=== PATIENT | female | born 1960 | race Hispanic/Latino ===

== ENCOUNTER 2017-07-13 09:53 | Outpatient (CLI) | payer MEDICARE, BC ==
--- NOTE | 2017-07-13 10:35 | MMO ---
BILATERAL MAMMOGRAMS: DATE: 07/13/17 HISTORY: Screening mammography. COMPARISON: 12/13/13. FINDINGS: Heterogeneously dense fibroglandular tissue benign-appearing calcifications are again demonstrated. M ultiple partially obscured oval and lobular isodense nodules of varying size throughout each breast a re stable and consistent with a benign process. There is no new dominant mass or suspicious calcifica tions. The study was evaluated with the assistance of computer-aided detection. IMPRESSION: BIRADS 2: Benign Finding(s) Suggest routine follow-up. POS: [facility]
== END 2017-07-13 09:54 | disposition home or self-care (01) ==
LOC: SCSMAMMO 09:53
PROVIDERS: ATTEND Family Medicine
DX: Z12.31 Encounter for screening mammogram for malignant neoplasm of breast (principal)
CPT/HCPCS: 77067

== ENCOUNTER 2017-12-10 19:04 | Observation (INO) | payer MEDICARE, BC ==
[2017-12-10] MEDS ORDERED: Nitroglycerin 2% Ointment 1 INCH/1 GM Packet ONE (19:32)
[2017-12-10 19:36] LABS: #Eosinphils 0.1 thou/uL (0.0-0.7); #Lymphocytes 2.1 thou/uL (1.20-3.40); #Monocytes 0.6 thou/uL (0.11-0.59); #Neutrophils 4.6 thou/uL (1.40-6.50); %Basophils 0.6 % (0.0-1.0); %Eosinophils 1.2 % (0.0-10.0); %Lymphocytes 27.9 % (21.0-51.0); %Monocytes 8.4 % (0.0-10.0); %Neutrophils 61.8 % (42.0-75.0); Hemoglobin 13.7 g/dL (12.0-16.0); Mean Corpuscular HGB CONC 35.1 g/dL (32.0-36.0); Mean Corpuscular Hemoglobin 28.3 pg (27.0-31.0); Mean Corpuscular Volume 80.7 fL (78.0-98.0); Mean Platelet Volume 6.9 fL (7.4-10.4); Platelet Count 233 thou/uL (130-400); RBC Distribution Width 11.6 % (11.5-14.5); Red Blood Cell (RBC) Count 4.84 mill/uL (4.20-5.40); White Blood Cell (WBC) Count 7.4 thou/uL (4.8-10.8)
[2017-12-10 19:49] LABS: ALT (SGPT) 15 U/L (8-55); AST (SGOT) 15 U/L (5-34); Albumin 4.6 g/dL (3.5-5.0); Alkaline Phosphatase 124 U/L (40-150); Anion Gap 15 mmol/L (10-20); BUN (Urea Nitrogen) 18 mg/dL (9.8-20.1); Bilirubin, Total 0.6 mg/dL (0.2-1.2); CK (CPK) 66 U/L (29-168); CKMB 1.2 ng/mL (0-6.6); Calc. Creatinine Clearance 0 mL/min (70-130); Calcium 9.6 mg/dL (7.8-10.44); Carbon Dioxide 24 mmol/L (22-29); Chloride 106 mmol/L (98-107); Estimated GFR-MDRD 85; Globulin 2.6 g/dL (2.4-3.5); Glucose 130 mg/dL (70-105); Lipase 24 U/L (8-78); Potassium 3.3 mmol/L (3.5-5.1); Protein, Total 7.2 g/dL (6.0-8.3); Sodium 142 mmol/L (136-145); Troponin I Less than 0.010 ng/mL (< 0.028)
--- NOTE | 2017-12-10 20:06 | RAD ---
PORTABLE UPRIGHT FRONTAL CHEST RADIOGRAPH 12/10/17 COMPARISON: 12/16/09 HISTORY: Chest pain. FINDINGS: Midline sternotomy wires are present. There is no pneumothorax, pleural fluid, focal consolidation, o r alveolar edema. There is mild pulmonary vascular prominence. IMPRESSION: No acute findings. POS: [facility]
[2017-12-10] MEDS ORDERED: Famotidine/PF 20 mg/2ml Vial ONE (20:20)
[2017-12-10] MEDS ORDERED: Acetaminophen 325 MG TAB PO PRN (21:31)
[2017-12-10] MEDS ORDERED: Calcium Carbonate 500 MG ChewTAB PO PRN (22:29)
[2017-12-10] MEDS ORDERED: traMADol HCl 50 MG TAB PO PRN (22:29)
[2017-12-10] MEDS ORDERED: Bisacodyl 5 MG TAB PO PRN ×2 (22:29)
[2017-12-10] MEDS ORDERED: Diabetic Tussin 200 MG/10 ML UDCUP PO PRN (22:29)
[2017-12-10] MEDS ORDERED: Mag-Al 1200 mg/1200 mg/30 ML UDCUP PO PRN (22:29)
[2017-12-10] MEDS ORDERED: Nitroglycerin 0.4 MG TAB (25 Tab Bottle) SL PRN (22:29)
[2017-12-10] MEDS ORDERED: Benzonatate 100 MG CAP PO PRN (22:29)
[2017-12-10] MEDS ORDERED: Senokot 8.6 MG TAB PO PRN ×2 (22:29)
[2017-12-10] MEDS ORDERED: Ondansetron HCl/PF 4 MG/2 ML Vial IVP PRN (22:29)
[2017-12-10] MEDS ORDERED: hydrALAZINE 20 MG/ML VIAL SLOW IVP PRN (22:29)
[2017-12-10] MEDS ORDERED: Loratadine 10 MG TAB PO PRN (22:29)
[2017-12-10] MEDS ORDERED: cloNIDine 0.1 MG TAB PO PRN (22:29)
[2017-12-10 23:08] LABS: Troponin I Less than 0.010 ng/mL (< 0.028)
[2017-12-10 23:43] VITALS: BMI 28.5
[2017-12-10] MEDS ORDERED: Nitroglycerin 2% Ointment 1 INCH/1 GM Packet TOP SCH (23:59)
[2017-12-11] MEDS: Acetaminophen 325 MG TAB PO PRN ×2 (00:17→05:13)
[2017-12-11 02:01] LABS: #Eosinphils 0.1 thou/uL (0.0-0.7); #Monocytes 0.6 thou/uL (0.11-0.59); #Neutrophils 3.2 thou/uL (1.40-6.50); %Basophils 0.1 % (0.0-1.0); %Eosinophils 1.6 % (0.0-10.0); %Lymphocytes 34.1 % (21.0-51.0); %Monocytes 9.3 % (0.0-10.0); Hemoglobin 12.6 g/dL (12.0-16.0); Mean Corpuscular Hemoglobin 30.1 pg (27.0-31.0); Mean Corpuscular Volume 86.1 fL (78.0-98.0); Mean Platelet Volume 6.6 fL (7.4-10.4); Platelet Count 207 thou/uL (130-400); RBC Distribution Width 12.1 % (11.5-14.5); Red Blood Cell (RBC) Count 4.19 mill/uL (4.20-5.40); White Blood Cell (WBC) Count 5.9 thou/uL (4.8-10.8)
[2017-12-11 02:05] LABS: Troponin I Less than 0.010 ng/mL (< 0.028)
[2017-12-11 02:20] LABS: Anion Gap 12 mmol/L (10-20); BUN (Urea Nitrogen) 18 mg/dL (9.8-20.1); Calc. Creatinine Clearance 117 mL/min (70-130); Calcium 9.2 mg/dL (7.8-10.44); Carbon Dioxide 24 mmol/L (22-29); Cardiac Risk 3.9 (Less than 4.5); Chloride 107 mmol/L (98-107); Cholesterol 196 mg/dl (< 200 Desired); Estimated GFR-MDRD Greater than 90; Glucose 112 mg/dL (70-105); HDL Cholesterol 50 mg/dL (>60 Neg Risk); LDL Cholesterol, Calculated 122 mg/dL; Potassium 3.4 mmol/L (3.5-5.1); Sodium 140 mmol/L (136-145); Triglycerides 121 mg/dL (Less than 150)
--- NOTE | 2017-12-11 02:26 | HP ---
DATE OF ADMISSION: 12/10/2017 Patient was seen prior to midnight. PRIMARY CARE PHYSICIAN: Dr. Benjamin Rose. CHIEF COMPLAINT: Chest pain. HISTORY OF PRESENTING ILLNESS: Ms. Pagan is a very pleasant 57-year-old female with past medical his tory of coronary artery disease, status post CABG in 2005, who is here for chest pain symptoms. Hist ory is mainly obtained by the patient herself and electronical medical records have been reviewed. Ms. Pagan reports that she had a stress test done in 2005, which was found to be abnormal, so she und erwent balloon angioplasty, but was told that she would require coronary artery bypass graft. She re ports that she underwent the CABG, which was sustained a cardiac arrest and they had to open her up t wice again. She has been following up with Dr. Ludwig in the Cardiology Clinic over at [place] [facility] since then. With the record review, it seems like that she has undergone CABG in 2003 with a redo in 2005. The patient reports that yesterday, she had a severe pain located in the epigastric region associated with some shortness of breath, sweating, and some dizziness and nausea. The symptoms happened while she was cleaning. These went away spontaneously after few hours then she felt better. Again, this morning, she had similar symptoms, but they were not more pronounced. She reports that the pain is m ainly in the upper epigastric area and it feels like a severe cramp. Today, she was not nauseated or did not have any sweating or any palpitations. She got worried with these symptoms and her family b rought her to the hospital. She does report that she is supposed to take an aspirin a day, but somet imes she forgets. The patient reports that she has been feeling weak and tired lately for the last 2 days. She denies any fever, chills, or recent illnesses. She denies any abdominal pain, nausea, vomiting, diarrhea. She denies any dysuria, frequency, urgency. She denies any shortness of breath or dyspnea on exertio n. In the emergency room, her initial evaluation was unremarkable. She was somewhat hypertensive upon p resentation with blood pressure 172/86. Her 12-lead EKG was unremarkable and cardiac enzymes were no rmal. She did have some nonspecific ST and T abnormality and poor R-wave progression. Chest x-ray w as unremarkable. She was given Pepcid, transdermal nitroglycerin paste, and aspirin and now is being admitted to our facility for further workup. PAST MEDICAL HISTORY: 1. Coronary artery disease, status post CABG x2 in 2003 and then 2005. 2. Hypertension. 3. Iron-defiiency anemia. 4. Dyslipidemia. 5. History of syncope. PAST SURGICAL HISTORY: 1. CABG in 2003 and 2005. 2. Bilateral tubal ligation. ALLERGIES: None. FAMILY HISTORY: Father at the age of 67 from coronary artery disease and brother had coronary a rtery disease. Sister had a murmur. One of her cousins just last week who was in his 30s of he art attack. SOCIAL HISTORY: She is and lives with her family. No history of drug, tobacco, or alcohol a buse. MEDICATIONS: Aspirin 325 mg daily, Plavix 75 mg daily, metoprolol tartrate 25 mg p.o. b.i.d., Lipito r, unknown dose. REVIEW OF SYSTEMS: The following complete review of systems was negative, except for those mentioned in the history and physical: Constitutional: Weight loss or gain, ability to conduct usual activit ies. Skin: Rash, itching. Eyes: Double vision, pain. ENT/Mouth: Nose bleeding, neck stiffness, pain, tenderness. Cardiovascular: Palpitations, dyspnea on exertion, orthopnea. Respiratory: Shor tness of breath, wheezing, cough, hemoptysis, fever, or night sweats. Gastrointestinal: Poor appeti te, abdominal pain, heartburn, nausea, vomiting, constipation, or diarrhea. Genitourinary: Urgency, frequency, dysuria, nocturia. Musculoskeletal: Pain, swelling. Neurologic/Psychiatric: Anxiety, depression. Allergy/Immunologic: Skin rash, bleeding tendency. LABORATORY EXAMINATION: CBC is unremarkable. Serum chemistry show potassium of 3.3, blood sugar 130 . Troponin less than 0.010 x2. BNP normal. Lipase normal. Liver enzymes normal. Chest x-ray by m y review has no evidence to suggest pleural effusion, edema, or infiltrate. A 12-lead EKG by my review shows some nonspecific ST and T-wave changes and normal sinus rhythm. Poo r R-wave progression is seen. PHYSICAL EXAMINATION: VITAL SIGNS: Most recent vital signs, temperature 98.2, pulse of 60, respirations 18, saturating 98% on room air, blood pressure 158/77. GENERAL: No acute distress, lying comfortably in bed. Daughter is at bedside. Awake, alert, orient ed x3. HEENT: Mucous membrane is moist and pink. No oropharyngeal exudate or erythema. Head is normocepha lic, atraumatic. Pupils are equal, reactive to light and accommodation. Extraocular movement intact . NECK: Supple without any lymphadenopathy, JVD, or bruit. CHEST: Clear to auscultation without any wheezing, rales, or rhonchi. HEART: Rate and rhythm is regular without any murmur, rubs, or gallops. ABDOMEN: Tender to palpation in the epigastric region. No rebound, guarding, or rigidity. Nondiste nded. No hepatosplenomegaly. EXTREMITIES: Free of any cyanosis, clubbing, or edema. NEUROLOGIC: Nonfocal. SKIN: Free of any rashes or bruises. I feel warm and dry to touch. PSYCHIATRIC: Normal affect. IMPRESSION AND PLAN: 1. Chest pain. The patient's EMR was reviewed extensively from her last hospitalization and it seem s like that she has had multiple admissions in the last years for angina. She does have some history of noncompliance in the past. Given her extensive history of coronary artery disease and significan t family history, we will go ahead and get a stress test at this time. If the stress test is abnorma l, we will request consultation with Cardiology; otherwise, if it is normal, she will be referred [facility] to her own education courses sales representative, Dr. Ludwig over at [facility]. At this time, we will continue her as pirin, Plavix, and beta-candice. The patient also has epigastric tenderness and her symptoms are mostly located in the epigastrium. T his can be secondary to gastritis, esophagitis, or gastric ulcer. She denies any hematochezia or maynor cynthia at this time. She does take aspirin on a regular basis, so at this time, she will be started on proton pump inhibitor and given Maalox as needed basis. I have instructed her to continue the Proton ix for the next month or so and if her symptoms do not resolve follow up with waste water treatment plant operator: for an EGD. At this time, she is hemodynamically stable. We will also obtain lipid profile and continu e serial cardiac enzymes. We will also repeat an EKG in the morning. 2. History of coronary artery disease. Continue home medications as above. We will also start her on low-dose AMBERLY inhibitor, as there is no contraindication and I am not sure why she is not already o n it, as she is quite hypertensive at this time with significant history of coronary artery disease. 3. Hypertension. The patient will be restarted on her beta-candice except that she contact it until unless she has had her stress test completed. We will start her on lisinopril as well. We will add p.r.n. antihypertensives for now. 4. Epigastric tenderness. We will start her on proton-pump inhibitor for possible non-steroidal ant iinflammatory drug induced gastritis. 5. Deep venous thrombosis and gastrointestinal prophylaxis. 6. Code status: FULL CODE discussed with the patient.
[2017-12-11] MEDS ORDERED: Potassium Chloride 20 MEQ TAB PO SCH (08:00)
[2017-12-11] MEDS ORDERED: Aspirin 325 mg Enteric Coated Tablet PO SCH (09:00)
[2017-12-11] MEDS ORDERED: Famotidine 20 MG TAB PO SCH (09:00)
[2017-12-11] MEDS: Aspirin 325 MG TAB PO SCH ×2 (09:17→12:55)
[2017-12-11] MEDS ORDERED: ADENOSINE 60 MG/20 ML VIAL ONE (10:09)
[2017-12-11] MEDS: Metoprolol Tartrate 25 MG TAB PO SCH ×2 (12:17→20:52)
[2017-12-11] MEDS: Clopidogrel Bisulfate 75 MG TAB PO SCH (12:18)
[2017-12-11] MEDS: Lisinopril 5 MG TAB PO SCH ×2 (12:21→20:52)
[2017-12-11] MEDS: Enoxaparin Sodium 40 MG/0.4 ML SYRINGE SC SCH (12:24)
--- NOTE | 2017-12-11 14:07 | NM ---
CARDIAC SPECT: HISTORY: A 57-year-old female with chest pain, myocardial infarction, hypertension, syncope, coronary artery d isease, CABG. TECHNIQUE: A myocardial perfusion scan is performed using the single-isotope 1-day protocol with Technetium 99m sestamibi. Ten mCi were injected intravenously for the rest exam followed by 31 mCi for the stress s tudy. Pharmacologic stress with adenosine is monitored and interpreted by Dr. Pretty. FINDINGS: Homogeneous tracer distribution is seen in the myocardial segments on stress and rest images without fixed or reversible defects. The GATED SPECT LVEF: 79%. WALL MOTION EXAM: Normal. IMPRESSION: Normal myocardial perfusion scan. POS: [facility]
[2017-12-11] MEDS ORDERED: ISOVUE-370 76%-LOCM 1 ML ONE (15:05)
[2017-12-11] MEDS: Aspirin 325 mg Enteric Coated Tablet PO SCH (15:23)
--- NOTE | 2017-12-11 15:32 | CON ---
DATE OF CONSULTATION: 12/11/2017 CARDIOLOGY CONSULTATION REASON FOR CONSULTATION: Chest pain. PRIMARY ANALYST GEOCHEMICAL PROSPECTING: Donovan Ludwig M.D. HISTORY OF PRESENT ILLNESS: Ms. Pagan is a pleasant 57-year-old female who comes to the [facility] for chest pain. She describes it as epigastric pain. She also has been noticing episodes of j ust shortness of breath and chest tightness with any exertion. They have been getting worse in the l ast few months. She has a history of coronary artery disease with previous bypass in 2003. She had a MARADIAGA to the LAD and a vein to an OM secondary to a left main stenosis. Two years later, she underw ent repeat bypass surgery. She had an atretic MARADIAGA. Her vein to the OM was widely patent. She had a new vein graft placed to the LAD. Soon after her surgery, she actually thrombosed that vein graft, had VT that shocked out of it and was taken back to the operating room and was found to have a throm bosed vein graft, so another new vein graft was placed on that LAD. She has done well since. She griggs s followed with Dr. Ludwig every 6 months to a year. Currently, she is chest pain free. She had a s tress test today that was normal; however, she had chest tightness, which are her typical symptoms an d were her typical symptoms for angina in the past during the stress test, so she is concerned that t his might actually be her heart. She has a significant past medical history with her family, her fat her dying of sudden cardiac . PAST MEDICAL HISTORY: 1. Coronary artery disease as above. 2. Hypertension. 3. Iron deficiency anemia. 4. Hyperlipidemia. 5. Syncope in the past. PAST SURGICAL HISTORY: 1. CABG in 2003 and again in 2005, vein graft to an LAD, vein graft to an OM. 2. Bilateral tubal ligation. OUTPATIENT MEDICATIONS: Include, 1. Aspirin 325 mg a day. 2. Plavix 75 mg a day. 3. Metoprolol tartrate 25 mg b.i.d. 4. Lipitor. ALLERGIES: No known drug allergies. SOCIAL HISTORY: No alcohol, tobacco or drugs. FAMILY HISTORY: Father at 67 of sudden cardiac , but he had bypass before that. Brother h ad a bypass as well. Sister with a murmur. REVIEW OF SYSTEMS: A 12-point review of systems was done and is all negative unless stated in the hi story of present illness. PHYSICAL EXAMINATION: VITAL SIGNS: Temperature 97.4, pulse 63, respiration rate 18, satting 99% on room air, blood pressur e 175/78. GENERAL: Awake, alert, oriented x3, in no distress. HEENT: Normocephalic, atraumatic. NECK: Supple. LUNGS: Clear. CARDIOVASCULAR: S1, S2. No S3, S4. No murmurs. ABDOMEN: Soft with positive bowel sounds. EXTREMITIES: No edema. SKIN: Warm and dry. LABORATORY WORK: Reviewed. CBC is unremarkable. Chemistry is unremarkable except for potassium of 3.4. Troponin is undetectable x3. BNP was normal. Albumin was normal. Cholesterol total of 196, L DL of 122, HDL of 50, triglycerides of 121. Lipase was normal. EKG was reviewed, inverted T waves. Chest x-ray was reviewed. Stress test was reviewed. ASSESSMENT AND PLAN: Epigastric pain: This could be reflux; however, she states that she also gets chest tightness with exertion, symptoms that would be typical for angina. Secondary to this, I sugge st we do further risk stratification with a heart catheterization to make sure this is really not her heart as she is about 12 years out of her bypass and is close to the time where the vein graft start s to degenerate. We spoke at length about the risks and benefits of the procedure, risks including, but not limited to stroke, myocardial infarction, , bleeding, need for blood transfusion, limb l oss, organ loss, allergic reactions to contrast and kidney reaction to contrast. The patient underst ands and verbalized understanding of this. She agrees to proceed. Drug-eluting stents if needed. Further recommendation per results of coronary catheterization.
--- NOTE | 2017-12-11 17:04 | PDOC.PN ---
- Subjective Encounter Start Date: 12/11/17 Encounter Start Time: 17:02 Pt seen for followup re: chest pain. Denies fevers or chills. 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 Reviewed: Yes Vital Signs & Weight: Vital Signs (12 hours) Temp Pulse Resp BP Pulse Ox 12/11/17 12:20 97.4 F L 60 18 175/78 H 99 12/11/17 07:25 98.2 F 64 18 176/77 H 97 Weight Weight 161 lb 1.6 oz I&O: 12/10/17 12/11/17 12/12/17 06:59 06:59 06:59 Intake Total 610 Balance 610 Result Diagrams: 12/11/17 01:27 12/11/17 01:27 EKG Reviewed by me: Yes (Tele: NSR) Phys Exam - Physical Examination Constitutional: NAD HEENT: moist MMs Neck: supple Respiratory: clear to auscultation bilateral Cardiovascular: RRR Gastrointestinal: soft Neurological: moves all 4 limbs Psychiatric: normal affect Dx/Plan (1) Chest pain Code(s): R07.9 - CHEST PAIN, UNSPECIFIED Status: Acute Comment: for cath tomorrow. d-dimer elevated, r/o PE with CTA chest. Hydrate pt. (2) HTN (hypertension) Code(s): I10 - ESSENTIAL (PRIMARY) HYPERTENSION Status: Chronic Comment: Monitor vital signs, titrate antihypertensives as needed. Continue PRN IV hydralazine. (3) Dyslipidemia Code(s): E78.5 - HYPERLIPIDEMIA, UNSPECIFIED Status: Chronic Comment: continue statin - Plan * . Review of Systems - Review of Systems Respiratory: negative: Cough, Shortness of Breath, SOB with Excertion, Pleuritic Pain, Wheezing Cardiovascular: chest pain. negative: palpitations, orthopnea, paroxysmal nocturnal dyspnea, edema, light headedness - Medications/Allergies Allergies/Adverse Reactions: Allergies Allergy/AdvReac Type Severity Reaction Status Date / Time No Known Drug Allergies Allergy Verified 12/11/17 16:33 Medications: Current Medications Acetaminophen (Tylenol) 650 mg PO Q4H PRN PRN Reason: Headache/Fever or Pain Last Admin: 12/11/17 05:13 Dose: 650 mg Al Hydroxide/Mg Hydroxide (Maalox) 30 ml PO Q6H PRN PRN Reason: Heartburn or Indigestion Last Admin: 12/11/17 00:17 Dose: 30 ml Aspirin (Ecotrin) 325 mg PO DAILY [facility] Last Admin: 12/11/17 15:23 Dose: Not Given Benzonatate (Tessalon) 100 mg PO Q4H PRN PRN Reason: Cough Bisacodyl (Dulcolax) 10 mg PO DAILYPRN PRN PRN Reason: Constipation Calcium Carbonate (Tums) 1,000 mg PO Q4H PRN PRN Reason: Heartburn or Indigestion Clonidine (Catapres) 0.1 mg PO Q4H PRN PRN Reason: Systolic BP > 160 Clopidogrel Bisulfate (Plavix) 75 mg PO DAILY [facility] Last Admin: 12/11/17 12:18 Dose: 75 mg Enoxaparin Sodium (Lovenox) 40 mg SC 0900 [facility] Last Admin: 12/11/17 12:24 Dose: Not Given Guaifenesin (Robitussin Sf) 200 mg PO Q4H PRN PRN Reason: Cough Hydralazine HCl (Apresoline) 10 mg SLOW IVP Q4H PRN PRN Reason: Systolic BP > 170 Sodium Chloride (Normal Saline 0.9%) 1,000 mls @ 75 mls/hr IV .[id number] [facility] Lisinopril (Zestril) 5 mg PO BID [facility] Last Admin: 12/11/17 12:21 Dose: 5 mg Loratadine (Claritin) 10 mg PO DAILYPRN PRN PRN Reason: Sinus Symptoms Metoprolol Tartrate (Lopressor) 25 mg PO BID [facility] Last Admin: 12/11/17 12:17 Dose: 25 mg Nitroglycerin (Nitrostat) 0.4 mg SL Q5MIN PRN PRN Reason: Chest Pain Ondansetron HCl (Zofran) 4 mg IVP Q6H PRN PRN Reason: Nausea/Vomiting Pantoprazole Sodium (Protonix) 40 mg PO DAILY [facility] Last Admin: 12/11/17 12:22 Dose: 40 mg Senna (Senokot) 2 tab PO HSPRN PRN PRN Reason: Constipation Sodium Chloride (Flush - Normal Saline) 10 ml IVF PRN PRN PRN Reason: Saline Flush Tramadol HCl (Ultram) 50 mg PO Q4H PRN PRN Reason: Moderate Pain (4-6) Last Admin: 12/11/17 05:13 Dose: 50 mg
[2017-12-11] MEDS: Sodium Chloride 0.9% 1,000 ML IV SCH (17:26)
--- NOTE | 2017-12-11 18:33 | CT ---
CT ANGIOGRAM CHEST: Date: 12-11-17 Comparison: None. History: Chest pain, elevated D-Dimer, assess for pulmonary embolism. Technique: Serial axial CT imaging at 2.5 mm intervals from epigastric region through lung apices wit h IV contrast using a CT angiogram protocol. Coronal and oblique sagittal 3D reformatted imaging obta ined. FINDINGS: Midline sternotomy wires are present. There is a small amount of fluid associated with the inferior t ip of the lower most midline sternotomy wire within the subcutaneous fat. This small fluid collection measures 1.8 x 1.7 cm. Review of the upper abdomen demonstrates contrast media within the IVC and hepatic veins suggesting r eflux on the basis of suboptimal cardiac outflow. The heart is enlarged. Mediastinal clips are presen t. There is no lymphadenopathy seen in the chest. No significant pleural, paracardial, or mediastinal fl uid. No pulmonary arterial filling defect is seen to suggest the presence of acute pulmonary embolism. No endobronchial lesion is evident. No acute osseous abnormality. IMPRESSION: No evidence for acute pulmonary embolism. POS: [facility]
[2017-12-12] MEDS: Sodium Chloride 0.9% 1,000 ML IV SCH (05:49)
[2017-12-12] MEDS: Aspirin 325 mg Enteric Coated Tablet PO SCH (05:49)
[2017-12-12] MEDS: Clopidogrel Bisulfate 75 MG TAB PO SCH (05:49)
[2017-12-12] MEDS: Enoxaparin Sodium 40 MG/0.4 ML SYRINGE SC SCH (05:50)
[2017-12-12] MEDS: Lisinopril 5 MG TAB PO SCH (05:52)
[2017-12-12] MEDS: Metoprolol Tartrate 25 MG TAB PO SCH (05:52)
[2017-12-12] MEDS ORDERED: Lidocaine 1% (PF) 30 ML VIAL ONE (09:37)
[2017-12-12] MEDS ORDERED: Iopamidol 370 76% 100 ML VIAL ONE (10:03)
[2017-12-12] MEDS ORDERED: Midazolam HCl 2 mg/2 ml Vial ONE (10:36)
[2017-12-12] MEDS ORDERED: Fentanyl 100 MCG/2 ML VIAL ONE (10:36)
[2017-12-12] MEDS ORDERED: Acetaminophen/Codeine 30-300mg Tablet PO PRN (10:55)
[2017-12-12] MEDS ORDERED: Sodium Chloride 0.9% 1,000 ML IV SCH (11:00)
[2017-12-12] MEDS ORDERED: Sodium Chloride 0.9% 200 ML IV SCH (11:00)
[2017-12-12 11:20] VITALS: BP 145/68; TEMP 97.7
[2017-12-12] MEDS ORDERED: Potassium Chloride 20 MEQ TAB PO SCH ×2 (14:00)
--- NOTE | 2017-12-12 14:06 | DIS ---
DATE OF ADMISSION: 12/10/2017 DATE OF DISCHARGE: 12/12/2017 PRIMARY CARE PROVIDER: Benjamin Rose M.D. DISCHARGE DIAGNOSES: 1. Chest pain. 2. Hypokalemia. 3. Small fluid collection associated with the inferior tip of the lower most midline sternotomy wire within the subcutaneous fat. CONDITION OF PATIENT ON THE DAY OF DISCHARGE: Stable. I assessed Ms. Pagan on the day of discharge. She reports that her chest pain is better. Vital signs are stable. S1 and S2 are heard, regular. Lungs are clear to auscultation bilaterally. DISCHARGE MEDICATIONS: Aspirin 325 mg daily, Plavix 75 mg daily, Lopressor 25 mg 2 times a day, Chris tor 40 mg daily. CONSULTATIONS DURING THIS HOSPITALIZATION: Cardiology, Dr. Pretty. HOSPITAL COURSE: Ms. Pagan is a pleasant 57-year-old lady who was admitted to [facility] on 12/10/2017 for chest pain. She underwent nuclear stress test, which was normal. Left ventricular ejection fraction was 79%. She also had CT angiogram of the chest, which did not show p ulmonary embolism. She had a small amount of fluid associated with the inferior tip of the lower mos t midline sternotomy wire within the subcutaneous fat. It is unclear how long this fluid has been pr esent. The patient was not febrile and did not have leukocytosis. She is advised to follow up with her primary care provider regarding this fluid collection or to seek medical attention if she develop s new symptoms. After discussion with Cardiology Service, the patient underwent cardiac catheterization on 12/12/2017 . She was found to have normal left ventricular function, widely patent RCA without disease, severe LM with 90% stenosis, widely patent Y graft to LAD and OM. The patient has been advised to continue optimal medical therapy and risk factor modification. She has been cleared for discharge by Cardiolo gy Service. The patient may benefit from a trial of PPI or H2 candice. On the day of discharge, she was reluctan t to start a medication because she does not feel that she has heartburn. Many thanks for allowing me to participate in your patient's care. Please feel free to contact me wi th any questions or concerns. DISCHARGE DESTINATION: Home.
[2017-12-12] MEDS ORDERED: Rosuvastatin 20 MG TAB PO SCH (21:00)
== END 2017-12-12 15:05 | disposition home or self-care (01) ==
LOC: SCSER 19:04 → 2SW 21:14
PROVIDERS: ADMIT Internal Medicine; ATTEND Internal Medicine
PROC: 4A023N7 Measurement of Cardiac Sampling and Pressure, Left Heart, Percutaneous Approach (ICD-10-PCS; principal; 2017-12-12)
PROC: B2111ZZ Fluoroscopy of Multiple Coronary Arteries using Low Osmolar Contrast (ICD-10-PCS; 2017-12-12)
PROC: B2121ZZ Fluoroscopy of Single Coronary Artery Bypass Graft using Low Osmolar Contrast (ICD-10-PCS; 2017-12-12)
DX: R07.9 Chest pain, unspecified (principal); R10.13 Epigastric pain; I25.10 Atherosclerotic heart disease of native coronary artery without angina pectoris; E78.00 Pure hypercholesterolemia, unspecified; I10 Essential (primary) hypertension; D50.9 Iron deficiency anemia, unspecified; E78.5 Hyperlipidemia, unspecified; Z79.02 Long term (current) use of antithrombotics/antiplatelets; Z79.82 Long term (current) use of aspirin; Z79.899 Other long term (current) drug therapy; Z95.5 Presence of coronary angioplasty implant and graft
CPT/HCPCS: 71045; 71275; 78452; 80048; 80053; 80061; 82550; 82553; 83690; 83880; 84484 ×3; 85025 ×2; 85379 ×2; 93005 ×2; 93017; 93459; 94760 ×2; 96374; 97139 ×2; 99285; A9500; C1769; G0378 ×2; 36415; 93010; 99152; J0153; J1644; J2001; J2250; J3010; S0028

== ENCOUNTER 2018-05-22 07:48 | Outpatient (CLI) | payer MEDICARE, BC ==
--- NOTE | 2018-05-22 08:35 | RAD ---
RIGHT CALCALNEUS TWO VIEWS: History: Plantar fascitis. Comparison: None. FINDINGS: There is bony spurring involving the calcaneus at the plantar aponeurosis insertion site. No fracture . No clinical irregularity or periosteal reaction. IMPRESSION: Bony spurring as above. POS: [facility]
== END 2018-05-22 07:49 | disposition home or self-care (01) ==
LOC: SCSRAD 07:48
PROVIDERS: ATTEND Family Medicine
DX: M72.2 Plantar fascial fibromatosis (principal); M77.31 Calcaneal spur, right foot

== ENCOUNTER 2020-05-08 15:24 | Outpatient (CLI) | payer MEDICARE, BC ==
--- NOTE | 2020-05-09 08:31 | MMO ---
Bilateral MAMMO Bilat Screen [facility]. CLINICAL HISTORY: Patient is 60 years old and is seen for screening. The patient has no family history of breast cancer. The patient has no personal history of cancer. VIEWS: The views performed were: bilateral craniocaudal with tomosynthesis and bilateral mediolateral oblique with tomosynthesis. FILMS COMPARED: The present examination has been compared to prior imaging studies performed at [facility] on 03/16/2019, and at [facility] on 06/08/2016 and 07/13/2017. This study has been interpreted with the assistance of computer-aided detection. MAMMOGRAM FINDINGS: The breasts are heterogeneously dense, which could obscure a lesion on mammography. There are stable benign appearing calcifications seen in both breasts. There are no suspicious masses, suspicious calcifications, or new areas of architectural distortion. IMPRESSION: THERE IS NO MAMMOGRAPHIC EVIDENCE OF MALIGNANCY. A ROUTINE FOLLOW-UP MAMMOGRAM IN 1 YEAR IS RECOMMENDED. THE RESULTS OF THIS EXAM WERE SENT TO THE PATIENT. ACR BI-RADS Category 2 - Benign finding MAMMOGRAPHY NOTE: 1. A negative mammogram report should not delay a biopsy if a dominant of clinically suspicious mass is present. 2. Approximately 10% to 15% of breast cancers are not detected by mammography. 3. Adenosis and dense breasts may obscure an underlying neoplasm. Reported by: IRA PLASENCIA MD Electonically Signed: [id number]
== END 2020-05-08 15:25 | disposition home or self-care (01) ==
LOC: BICMAMMO 15:24
PROVIDERS: ATTEND Family Medicine
DX: Z12.31 Encounter for screening mammogram for malignant neoplasm of breast (principal)
CPT/HCPCS: 77063; 77067